=== PATIENT | female | born 1985 | race Caucasian/White ===

== ENCOUNTER → 2022-08-09 | Outpatient (CLI) | LOC: M SOG 08:34 | PROVIDERS: ATTEND Orthopaedic Surgery | DX: M25.521 Pain in right elbow (principal); M25.531 Pain in right wrist ==

== ENCOUNTER → 2022-08-10 | Outpatient (CLI) | payer OTHER | LOC: M PLAIMG 09:14 | PROVIDERS: ATTEND Orthopaedic Surgery | DX: G56.21 Lesion of ulnar nerve, right upper limb (principal) ==

== ENCOUNTER → 2022-12-26 | Outpatient (CLI) | payer OTHER ==
[~2022-12-26] MED LIST: ACET-841 PO; CYCL5TAB PO; TOPI-254 PO
== END ==
LOC: M LABSMTC 10:25
PROVIDERS: ATTEND Anesthesiology
DX: Z01.812 Encounter for preprocedural laboratory examination (principal)

== ENCOUNTER 2022-12-31 07:42 | Day surgery (SDC) | payer OTHER ==
[~2022-12-31] VITALS: Ht 165.1 cm; Wt 85.7 kg
[2022-12-31] MEDS ORDERED: LR 1,000 ML IV SCH ×2 (08:30→12:05)
[2022-12-31] MEDS ORDERED: fentaNYL 100 MCG/2 ML INJECTION As Ordered ONE (09:25)
[2022-12-31] MEDS ORDERED: propofoL 200 MG/20 ML VIAL As Ordered ONE (09:25)
[2022-12-31] MEDS ORDERED: MIDAZOLAM INJ 2MG/2ML VIAL As Ordered ONE (09:25)
[2022-12-31] MEDS ORDERED: LIDOCAINE 2% 100MG/5ML SDV (FOR ANES.) As Ordered ONE (09:25)
[2022-12-31] MEDS ORDERED: LIDOCAINE W/EPINEPHRINE 1% 20ML VIAL As Ordered ONE (10:20)
[2022-12-31] MEDS ORDERED: ceFAZolin SOD 2 GM in IV 1 EA IV ONE (10:25)
[2022-12-31] MEDS ORDERED: ceFAZolin 2 GM/D5W 50 ML IV BAG As Ordered ONE (10:29)
[2022-12-31] MEDS ORDERED: ONDANSETRON 4MG 2ML VIAL As Ordered ONE (10:46)
[2022-12-31] MEDS ORDERED: fentaNYL 100 MCG/2 ML INJECTION IV PRN (12:05)
[2022-12-31] MEDS ORDERED: oxyCODONE 5MG TAB PO PRN (12:05)
[2022-12-31] MEDS ORDERED: ONDANSETRON 4MG 2ML VIAL IV PRN (12:05)
[2022-12-31] MEDS ORDERED: PERC5TAB12 PO (12:16)
[2022-12-31] MEDS: HYDROMORPHONE HCL 0.5 MG/ 0.5 ML SYRINGE IV PRN ×2 (12:22→12:27)
[2022-12-31 13:22] VITALS: BP 123/69
== END 2022-12-31 13:29 | disposition home or self-care (01) ==
LOC: M SDC 07:42
PROVIDERS: ATTEND Orthopaedic Surgery Hand Surgery
DX: G56.21 Lesion of ulnar nerve, right upper limb (principal)
CPT/HCPCS: 64718; 81025; J0690; J1100; J1170; J2250; J2405; J3010

== ENCOUNTER → 2023-01-24 | Outpatient (CLI) | payer OTHER ==
[~2023-01-24] MED LIST changes: +PERC5TAB12 PO
== END ==
LOC: M SOG 14:54
PROVIDERS: ATTEND Physician Assistant
DX: M25.521 Pain in right elbow (principal)

== ENCOUNTER → 2024-01-30 | Outpatient (CLI) | payer OTHER ==
[~2024-01-30] MED LIST changes: +TOPI-21 PO; -TOPI-254 PO
== END ==
LOC: M SOG 11:21
PROVIDERS: ATTEND Physician Assistant
DX: M25.521 Pain in right elbow (principal)